=== PATIENT | male | born 1980 | race Caucasian/White ===

== ENCOUNTER → 2017-04-28 | Outpatient (CLI) | payer OTHER | LOC: BMCIMAGING 09:14 | PROVIDERS: ATTEND Family Medicine | DX: N50.812 Left testicular pain (principal); N50.3 Cyst of epididymis ==

== ENCOUNTER → 2018-03-10 | Outpatient (CLI) | payer OTHER | LOC: BMCIMAGING 18:31 | PROVIDERS: ATTEND Family Medicine | DX: M50.321 Other cervical disc degeneration at C4-C5 level (principal) ==

== ENCOUNTER 2018-08-14 10:53 | Emergency (ER) | payer OTHER ==
[2018-08-14] MEDS ORDERED: TDAP ADULT 0.5 ML INJ (BOOSTRIX) IM ONE (12:25)
[2018-08-14] MEDS ORDERED: AMOXICILLIN/CLAVULANATE POT 875/125 MG TAB PO ONE (12:25)
--- NOTE | 2018-08-14 12:55 | EDPHY ---
H & P Stated Complaint: cat bite Time Seen by Provider: 08/14/18 12:03 HPI/ROS: Chief complaint: Cat bite to upper lip History of present illness: This is a 37-year-old male, otherwise healthy, who presents for a cat bite to his upper lip. He was playing with his own cat, who is reported as healthy and up-to-date on immunizations, when the cat bit his lip. He has noted a vertical laceration that approximates well. He initially cleaned with hydrogen peroxide. Denies other trauma. He is not sure if his tetanus is up-to-date. - Personal History Current Tetanus/Diphtheria Vaccine: Unsure Current Tetanus Diphtheria and Acellular Pertussis (TDAP): Unsure - Medical/Surgical History Hx Asthma: No Hx Chronic Respiratory Disease: No Hx Diabetes: No Hx Cardiac Disease: No Hx Renal Disease: No Hx Cirrhosis: No Hx Alcoholism: No Hx HIV/AIDS: No Hx Splenectomy or Spleen Trauma: No Other PMH: HANY inguinal hernia repair, R hand surgery, HANY eye surgery - Social History Smoking Status: Never smoked - Physical Exam Exam: General: Alert, nontoxic. Skin: 0.5 cm laceration to the left superior lip that involves the vermilion border. It approximates well. It is not deep. ENT: He is opening closing his mouth without difficulty. Constitutional: Initial Vital Signs Temperature (C) 36.3 C 08/14/18 10:59 Heart Rate 49 L 08/14/18 10:59 Respiratory Rate 16 08/14/18 10:59 Blood Pressure 116/60 08/14/18 10:59 O2 Sat (%) 96 08/14/18 10:59 O2 Delivery Mode Room Air Allergies/Adverse Reactions: bacitracin [From Neosporin ([id number])] Allergy (Verified 08/14/18 10:59) neomycin [From Neosporin ([id number])] Allergy (Verified 08/14/18 10:59) polymyxin B [From Neosporin ([id number])] Allergy (Verified 08/14/18 10:59) Home Medications: Medication Instructions Recorded Amoxicillin/Clavulanate Pot 875 mg PO BID 5 Days tab 08/14/18 [Augmentin 875 MG TAB (*)] Medical Decision Making Procedures: Procedure: Laceration repair. Verbal consent was obtained from the patient. The 0.5 cm laceration on the left upper lip was anesthetized in the usual fashion. The wound was irrigated, draped and explored to its base with a gloved finger. There were no deep structures involved. No tendon injury was identified. The wound was repaired with 6 0 Prolene, 1 simple interrupted suture to ensure the vermilion border states approximated. The wound repair was simple. The procedure was performed by myself. ED Course/Re-evaluation: Patient seen under the supervision of my secondary supervising physician Dr. Ruben Platt. Patient presents to the emergency department for a cat bite to his left upper lip. It is his own cat that is healthy and up-to-date on immunizations. He has a superficial laceration that approximates well. However , it does involve the vermilion border. A single stitch was placed to ensure the vermilion border states approximated. Given it is a cat bite and is near his mouth I believe he is it increased risk for infection is therefore started on Augmentin. His tetanus is updated. Home care is discussed. Stitches to be removed in 5 days. He should follow up with his primary care doctor this week for recheck. Return precautions are given. - Data Points Medications Given: Discontinued Medications Amoxicillin/Clavulanate Potassium (Augmentin 875mg) 875 mg PO EDNOW ONE PRN Reason: Protocol Stop: 08/14/18 12:26 Last Admin: 08/14/18 12:40 Dose: 875 mg Diphtheria/Tetanus/Acell Pertussis (Boostrix) 0.5 ml IM .ONCE ONE Stop: 08/14/18 12:26 Last Admin: 08/14/18 12:40 Dose: 0.5 ml Departure - Departure Disposition: Home, Routine, Self-Care Clinical Impression: Cat bite Qualifiers: Encounter type: initial encounter Qualified Code(s): W55.01XA - Bitten by cat, initial encounter Condition: Good Instructions: Animal Bite (ED), Acute Wounds (ED) Additional Instructions: Follow-up with your primary care doctor this week for recheck Stitches to be removed in 5 days Take antibiotics as prescribed until finished If symptoms worsen or new symptoms develop return to the emergency room for recheck Referrals: Georges Dennis [Primary Care Provider] - As per Instructions Prescriptions: Amoxicillin/Clavulanate Pot [Augmentin 875 MG TAB (*)] 875 mg PO BID 5 Days tab
[2018-08-14 13:08] VITALS: BP 118/60
== END 2018-08-14 13:08 | disposition home or self-care (01) ==
PROC: 0CQ0XZZ Repair Upper Lip, External Approach (ICD-10-PCS; principal; 2018-08-14)
DX: S01.511A Laceration without foreign body of lip, initial encounter (principal); W55.01XA Bitten by cat, initial encounter; Z23 Encounter for immunization

== ENCOUNTER → 2018-10-04 | Outpatient (CLI) | payer OTHER | LOC: CIMAGING 08:08 | PROVIDERS: ATTEND Physical Medicine & Rehabilitation | DX: R51 Headache (principal); Z87.820 Personal history of traumatic brain injury | CPT/HCPCS: 70450-PO ==